=== PATIENT | male | born 1975 | race Caucasian/White ===

== ENCOUNTER 2019-06-28 22:01 | Emergency (ER) | payer SELFPAY ==
[~2019-06-28] VITALS: Ht 180.3 cm; Wt 81.8 kg
[2019-06-28 22:06] VITALS: BP 122/84; PULSE 57; TEMP 97.5
== END 2019-06-29 | disposition home or self-care (01) ==
LOC: COL.ER 22:01
DX: S86.912A Strain of unspecified muscle(s) and tendon(s) at lower leg level, left leg, initial encounter (principal); W19.XXXA Unspecified fall, initial encounter; Y92.59 Other trade areas as the place of occurrence of the external cause

== ENCOUNTER 2019-07-02 00:05 | Emergency (ER) | payer SELFPAY ==
[~2019-07-02] VITALS: Ht 177.8 cm; Wt 81.8 kg
[2019-07-02] MEDS ORDERED: ZOLOFT 25MG25 MG (00:48)
[2019-07-02] MEDS ORDERED: VRAYLAR1.5 MG (01:04)
[2019-07-02 01:21] LABS: BASO % 0.7 % (0.0-2.0); EOS # 0.3 (0.0-0.7); EOS % 4.8 % (0-4.0); GRAN # 2.5 (1.4-6.5); HEMATOCRIT 44.8 % (42.0-52.0); LYMPH # 2.2 (1.2-3.4); LYMPH % 39.8 % (20.0-51.0); MEAN CELL VOLUME 93 fl (80.0-100.0); MEAN CORPUSCULAR HEMOGLOBIN 31 pg (27.0-31.0); MEAN CORPUSCULAR HGB CONC 34 g/dl (33.0-37.0); MEAN PLATELET VOLUME 9.3 fl (7.4-10.4); MONO # 0.5 (0.1-0.6); MONO % 8.5 % (1.7-9.3); PLATELET COUNT 256 K/mm3 (130-400); REDCELL DISTRIBUTION WIDTH-CV 12.8 % (11.5-14.5)
[2019-07-02 01:24] LABS: TRICYCLIC ANTIDEPRESS URINE NEGATIVE
[2019-07-02 01:49] LABS: ALANINE AMINOTRANSFERASE 20 U/L (21-72); ALBUMIN 4.5 gm/dL (3.5-5.0); ALCOHOL(ethanol),MEDICAL 256 mg/dL; ALKALINE PHOSPHATASE 91 U/L (50-136); ANION GAP 14 mmol/L (7-16); AST,SGOT 35 U/L (15-37); BILIRUBIN,TOTAL 0.3 mg/dL (0.0-1.0); BLOOD UREA NITROGEN 8 mg/dL (9-20); CALCIUM 8.7 mg/dL (8.4-10.2); CARBON DIOXIDE 20 mmol/L (22-30); CHLORIDE 110 mmol/L (98-107); CREATININE, serum 0.74 (0.66-1.25); GLUCOSE 84 mg/dL (74-106); POTASSIUM 3.6 mmol/L (3.4-5.0); SODIUM 144 mmol/L (137-145)
[2019-07-02 01:50] LABS: ACETAMINOPHEN < 10 ug/mL (10-30); SALICYLATE < 1.0 mg/dL
[2019-07-02 07:14] VITALS: TEMP 97.1
[2019-07-02 07:15] VITALS: BP 103/59; PULSE 59
== END 2019-07-02 07:36 | disposition home or self-care (01) ==
LOC: COL.ER 00:05
PROVIDERS: Emergency Medicine
DX: R45.851 Suicidal ideations (principal); F32.9 Major depressive disorder, single episode, unspecified; F10.129 Alcohol abuse with intoxication, unspecified; F17.210 Nicotine dependence, cigarettes, uncomplicated; Y90.8 Blood alcohol level of 240 mg/100 ml or more